=== PATIENT | male | born 1995 | race African-American/Black ===

== ENCOUNTER 2017-09-27 04:05 | Emergency (ER) | payer OTHER ==
[2017-09-27 04:08] VITALS: BP 109/51; PULSE 90; TEMP 97.9; BMI 29.7
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
== END 2017-09-27 05:20 ==
LOC: JER 04:05
PROC: 0HQGXZZ Repair Left Hand Skin, External Approach (ICD-10-PCS; principal; 2017-09-27)
DX: S61.012A Laceration without foreign body of left thumb without damage to nail, initial encounter (principal); Y04.0XXA Assault by unarmed brawl or fight, initial encounter; Y93.89 Activity, other specified; Y92.59 Other trade areas as the place of occurrence of the external cause; Y99.8 Other external cause status
CPT/HCPCS: 12001; 99281-25